=== PATIENT | female | born 1990 | race Caucasian/White ===

== ENCOUNTER 2020-10-23 10:10 | Outpatient (REF) | payer BC, SELFPAY ==
--- NOTE | 2020-10-23 10:24 | XR_ITS ---
EXAMINATION: XR SHOULDER, RIGHT CLINICAL INFORMATION: Pain COMPARISON: Previous x-ray October 2011 TECHNIQUE: AP external rotation, Grashey, scapular Y, and axillary views of the right shoulder. FINDINGS: The bones and soft tissues are normal. No fracture. Glenohumeral and acromioclavicular alignment is anatomic with normal joint space. No abnormal soft tissue calcifications. XR/XR shoulder RT min 2V IMPRESSION: Normal right shoulder.
[2020-10-23 10:51] LABS: MANUAL DIFF FLAG NO
[2020-10-23 10:57] LABS: Basophils Percent Auto 0.4 % (0-2); Eosinophils Absolute Auto 0.2 X10*3/uL (0.0-0.4); Eosinophils Percent Auto 2.5 % (0-4); Hematocrit 42.5 % (37-47); Hemoglobin 13.6 g/dl (12.0-16.0); Imm Gran Abs Auto 0.02 X10*3/uL (0.00-0.03); Imm Gran Pct Auto 0.3 % (0.0-0.4); Lymphocytes Absolute Auto 1.9 X10*3/uL (1.2-4.9); Lymphocytes Percent Auto 27.8 % (20-40); Mean Corpuscular Hemoglobin 28.2 pg (27.0-33.0); Mean Platelet Volume 9.6 fL (9.4-12.3); Monocytes Absolute Auto 0.3 X10*3/uL (0.1-1.2); Monocytes Percent Auto 4.9 % (2-11); Neutrophils Absolute Auto 4.4 X10*3/uL (2.0-8.3); Neutrophils Percent Auto 64.1 % (45-73); Platelet Count 228 X10*3/uL (160-400); Red Blood Count 4.83 X10*6/uL (4.20-5.50); Red Cell Distribution Width 12.2 % (11.0-16.0); White Blood Count 6.8 X10*3/uL (4.8-10.8)
[2020-10-23 11:26] LABS: Anion Gap 15 (12-20); Blood Urea Nitrogen 19 mg/dL (9-16); Calcium 9.1 mg/dL (8.4-10.2); Carbon Dioxide 23 mmol/L (22-29); Chloride 105 mmol/L (96-108); Cholesterol 248 mg/dL; Estimated Glomerular Filt Rate > 60; Glucose Fasting 90 mg/dL (60-99); HDL Cholesterol 55 mg/dL; LDL Cholesterol Calculated 184 mg/dl; Potassium 4.4 mmol/l (3.3-5.1); Rheumatoid Factor < 15.0 IU/mL (<15.0); Sodium 139 mmol/L (135-145); Triglycerides 47 mg/dL
== END 2020-10-23 10:11 | disposition home or self-care (01) ==
LOC: HO.LAB 10:10
PROVIDERS: PCP Internal Medicine; Visit Provider Nurse Practitioner Family
DX: M25.511 Pain in right shoulder (principal); Z83.438 Family history of other disorder of lipoprotein metabolism and other lipidemia
CPT/HCPCS: 36415; 73030; 80048; 80061; 85025; 86431

== ENCOUNTER 2022-01-29 07:57 | Outpatient (REF) | payer BC, SELFPAY ==
[2022-01-29 08:40] LABS: Mean Corpuscular HGB Conc 32.6 g/dl (31.0-35.0); Mean Corpuscular Hemoglobin 28.1 pg (27.0-33.0); Mean Corpuscular Volume 86.3 fL (80.0-98.0); Mean Platelet Volume 9.5 fL (9.4-12.3); Platelet Count 295 X10*3/uL (160-400); Red Blood Count 4.98 X10*6/uL (4.20-5.50); Red Cell Distribution Width 12.2 % (11.0-16.0)
[2022-01-29 08:58] LABS: Alanine Aminotransferase 20 U/L (0-31); Albumin Level 4.2 g/dL (3.5-5.0); Alkaline Phosphatase 80 U/L (39-117); Anion Gap 11 (12-20); Aspartate Amino Transferase 10 U/L (5-31); Bilirubin Total 0.6 mg/dL (0.0-1.0); Blood Urea Nitrogen 14 mg/dL (9-16); Calcium 9.5 mg/dL (8.4-10.2); Carbon Dioxide 26 mmol/L (22-29); Chloride 106 mmol/L (96-108); Cholesterol 302 mg/dL; Estimated Glomerular Filt Rate > 60; Glucose Fasting 90 mg/dL (60-99); HDL Cholesterol 40 mg/dL; LDL Cholesterol Calculated 246 mg/dl; Sodium 139 mmol/L (135-145); Total Protein 7.1 g/dL (6.5-8.0); Triglycerides 81 mg/dL
[2022-01-29 09:20] LABS: TSH reflex Free T4 0.69 uIU/mL (0.32-4.0)
[2022-01-31 08:21] LABS: Folate 12.5 ng/mL (> or = 4.0); Vitamin B12 310 pg/mL (200-900)
== END 2022-01-29 07:58 | disposition home or self-care (01) ==
LOC: HO.LAB 07:57
PROVIDERS: PCP Internal Medicine; Visit Provider Nurse Practitioner Family
DX: Z13.29 Encounter for screening for other suspected endocrine disorder (principal); R42 Dizziness and giddiness; E78.49 Other hyperlipidemia
CPT/HCPCS: 36415; 80053; 80061; 82306; 82607; 82746; 84443; 85027

== ENCOUNTER 2022-04-30 08:28 | Outpatient (REF) | payer BC, SELFPAY ==
[2022-04-30 11:13] LABS: Vitamin D 25-OH Total 39.8 ng/mL (>30)
== END 2022-04-30 08:29 | disposition home or self-care (01) ==
LOC: HO.LAB 08:28
PROVIDERS: PCP Internal Medicine; Visit Provider Nurse Practitioner Family
DX: R79.89 Other specified abnormal findings of blood chemistry (principal)
CPT/HCPCS: 36415; 82306

== ENCOUNTER 2023-06-03 08:21 | Outpatient (REF) | payer BC, SELFPAY ==
[2023-06-03 09:34] LABS: Alanine Aminotransferase 14 U/L (0-31); Albumin Level 4.2 g/dL (3.5-5.0); Alkaline Phosphatase 58 U/L (39-117); Anion Gap 11 (12-20); Aspartate Amino Transferase 8 U/L (5-31); Bilirubin Total 0.5 mg/dL (0.0-1.0); Blood Urea Nitrogen 14 mg/dL (9-16); Calcium 9.1 mg/dL (8.4-10.2); Carbon Dioxide 25 mmol/L (22-29); Chloride 108 mmol/L (96-108); Estimated Glomerular Filt Rate > 60; Glucose Fasting 86 mg/dL (60-99); Potassium 3.7 mmol/L (3.3-5.1); Sodium 140 mmol/L (135-145); Total Protein 7.2 g/dL (6.5-8.0)
[2023-06-03 09:53] LABS: Thyroid Stimulating Hormone 1.47 uIU/mL (0.32-4.0); Vitamin D 25-OH Total 42.1 ng/mL (>30)
[2023-06-03 10:08] LABS: Folate 11.4 ng/mL (> or = 4.0); Vitamin B12 305 pg/mL (200-900)
== END 2023-06-03 08:22 | disposition home or self-care (01) ==
LOC: HO.LAB 08:21
PROVIDERS: PCP Internal Medicine; Visit Provider Internal Medicine
DX: E55.9 Vitamin D deficiency, unspecified (principal); E53.8 Deficiency of other specified B group vitamins; L40.9 Psoriasis, unspecified; L65.9 Nonscarring hair loss, unspecified
CPT/HCPCS: 36415; 80053; 82306; 82607; 82746; 84443

== ENCOUNTER 2024-07-02 17:27 | Outpatient (AMB) | payer BC, SELFPAY ==
[2024-07-02 17:39] VITALS: BP 112/70; BMI 26.2
--- NOTE | 2024-07-02 17:39 | A.OFFPC_ITS ---
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 Accompanied by: Self / Same As Patient Allergies No Known Allergies Allergy (Verified 07/02/24 17:45) Medication List - Last Reconciled 07/02/24 by Candy Parson MD norgestimate-ethinyl estradiol 0.25-35 mg-mcg 1 tab PO DAILY Tobacco use date assessed: 07/02/24 Dental Screening Dental Screen Date: 07/02/24 Did you have a dental visit in the last 12 months?: Yes Did you have a dental problem in the last 6 months where you did not have access to dental care?: No Was dental information given to patient?: Patient has dentist HPI HPI Comments History of Present Illness Details This is a 34-year-old female that comes for her physical exam. She has no acute complaints. Pap smear is up-to-date with OBGYN. [facility] Medical History Skin lesion Familial hyperlipidemia Family history of hyperlipidemia Right shoulder pain Surgical History History of surgery H/O wisdom tooth extraction Previous section Family History (Updated 07/02/24 @ 17:50 by Candy Parson MD) Mother Bipolar disorder Father Familial hyperlipidemia Social History Housing: House Alcohol intake: current Alcohol intake frequency: holidays/special occasions only Alcohol type: hard liquor Patient Tobacco Use Status: Never used Tobacco e-Cigarette/Vaping Use: Never Used Second Hand Smoke Exposure: No service: No Current occupational status: employed Cognitive needs: No Hearing needs: No Vision needs: No Questionnaire PHQ-9 Over the last 2 weeks, how often have you been bothered by any of the following problems? 1. Little interest or pleasure in doing things: not at all 2. Feeling down, depressed, or hopeless: not at all 3. Trouble falling or staying asleep, or sleeping too much: not at all 4. Feeling tired or having little energy: not at all 5. Poor appetite or overeating: not at all 6. Feeling bad about yourself - or that you are a failure or have let yourself or your family down: not at all 7. Trouble concentrating on things, such as reading the newspaper or watching television: not at all 8. Moving or speaking so slowly that other people could have noticed. Or the opposite - being so fidgety or restless that you have been moving around a lot more than usual: not at all 9. Thoughts that you would be better off or of hurting yourself in some way: not at all Total score: 0 Depression Screening Interpretation: Negative Depression Screening Done: Yes 15432 - PHQ-9 Billing: Yes Source: Developed by Drs. Edward Loyola, Anita Reyes, North Rucker and colleagues, with an educational carrie from [employer]. Thrive Questionnaire Date Thrive assessed: 07/02/24 I am a: Patient What is your living situation today?: I have a steady place to live Within the past 12 months, did the food you bought not last and you didn't have the money to get more?: Never true Within the past 12 months, did you worry whether your food would run out before you got money to buy more?: Never true Do you have trouble paying for medicines?: No Do you have trouble getting transportation to medical appointments?: No Do you have trouble paying your heating and electricity bill?: No Do you have trouble taking care of your child, family member or friend?: No Do you have trouble with day-to-day activities such as bathing, preparing meals, shopping, managing finances, etc.?: No Are you currently unemployed and looking for a job?: No Are you interested in more education?: No Please select the resources that you would like help with: None Currently or been in a relationship where the following occur: No concerns reported THRIVE Score: 0 AUDIT C Alcohol Use Questionnaire (AUDIT-C) 1. How often do you have a drink containing alcohol?: Monthly or less 2. How many drinks containing alcohol do you have on a typical day when you are drinking?: 1 or 2 3. How often do you have six or more drinks on one occasion?: Never Total Score: 1 Score Reviewed/Action Taken: No LILIAN-7 AMB Questionnaire LILIAN-7 Date LILIAN - 7 assessed: 07/02/24 Feeling nervous, anxious, or on edge: 0 = Not at all Not being able to stop or control worryin = Not at all Worrying too much about different things: 0 = Not at all Trouble relaxin = Not at all Being so restless that it is hard to sit still: 0 = Not at all Becoming easily annoyed or irritable: 0 = Not at all Feeling afraid as if something awful might happen: 0 = Not at all Total LILIAN-7 score (0-4 normal; 5-9 mild; 10-14 moderate; 15-21 severe): 0 Source: Developed by Drs. Edward Loyola, Anita Reyes, North Rucker and colleagues, with an educational carrie from [employer]. LILIAN-7 Assessment Billing LILIAN-7 Assessment Tool: LILIAN-7 Assessment 98941 Review of Systems Const All systems reviewed & are unremarkable except as noted in HPI and below Card Denies chest pain at rest, Denies chest pain with activity, Denies edema, Denies irregular heart rhythm, Denies claudication, Denies dyspnea, Denies dyspnea on exertion, Denies orthopnea, Denies paroxysmal nocturnal dyspnea and Denies slow heart rate Resp Denies cough, Denies dyspnea and Denies dyspnea on exertion GI Denies abdominal pain, Denies change in bowel habits, Denies excessive flatus, Denies nausea and Denies vomiting Denies urinary incontinence, Denies urinary hesitancy and Denies urinary urgency Musc Denies abnormal gait, Denies atrophy, Denies deformity and Denies limited range of motion Skin/Breast Denies bleeding lesions, Denies changing lesions and Denies rash Neuro Denies abnormal gait, Denies behavioral changes and Denies lack of coordination Psych Denies behavioral changes Physical exam (Primary Care) Vital Signs: Last Vital Signs BP 112/70 07/02/24 17:39 BMI result Body Mass Index 26.2 Tobacco/Smoking Status: Tobacco use Status Tobacco use date assessed 07/02/24 07/02/24 17:45 Patient Tobacco Use Status Never used Tobacco 07/02/24 17:45 e-Cigarette/Vaping Use Never Used 07/02/24 17:45 PHQ-9: PHQ-9 Score PHQ-9: Total score 0 07/02/24 19:43 Depression Screening Interpretation: Negative Thrive Assessment: Date of Thrive Assessment Date Thrive assessed 07/02/24 07/02/24 17:46 Currently or been in a relationship where the following occur: No concerns reported [facility] Head: Yes normal to inspection, Yes normocephalic and Yes atraumatic Ears: external ears normal Eyes General: appearance normal, both eyes and all related structures Eyelids: Yes eyelids normal Conjunctivae: conjunctivae normal Neck Neck: Yes normal visual inspection and Yes supple Resp Effort & Inspection: normal respiratory effort Auscultation: clear to auscultation bilaterally Cardio Jugular venous distension: no JVD Rate: regular rate Rhythm: regular rhythm Heart sounds: S1 normal heart sound present and S2 normal heart sound present GI Inspection: Yes normal to inspection Palpation (GI): Soft to palpation and nontender Auscultation: normal bowel sounds Skin General skin exam: no rashes or lesions noted Neuro General: no focal motor deficits Extrem General: Yes full ROM Psych Appearance: grossly normal Assessment and Plan Assessment & Plan (1) Physical exam: Code(s): Z00.00 - Encounter for general adult medical examination without abnormal findings Plan: Repeat in a year. Orders: Orders Lipid Panel Today E78.5 - Hyperlipidemia, unspecified Comprehensive [place]. Panel Fast Today Z00.00 - Encounter for general adult medical examination without abnormal findings Coding Level of Care Code Est Pt Prev Care 18-39y(87616) Diagnoses Physical exam Z00.00 Additional Codes LILIAN-7 Assessment Billing - LILIAN-7 Assessment Tool: LILIAN-7 Assessment 76880 ([id number]) Time Spent (min) 30
== END 2024-07-02 17:56 | disposition home or self-care (01) ==
PROVIDERS: PCP Internal Medicine; Visit Provider Internal Medicine
DX: Z00.00 Encounter for general adult medical examination without abnormal findings (principal)

== ENCOUNTER → 2024-07-02 17:27 | Outpatient (BNVA) | payer BC, SELFPAY | PROVIDERS: PCP Internal Medicine; Visit Provider Internal Medicine | DX: Z00.00 Encounter for general adult medical examination without abnormal findings (principal) | CPT/HCPCS: 96127 ==

== ENCOUNTER 2024-08-09 13:20 | Outpatient (REF) | payer BC, SELFPAY ==
[2024-08-09 13:35] LABS: MANUAL DIFF FLAG NO
[2024-08-09 14:11] LABS: Basophils Percent Auto 0.6 % (0-2); Eosinophils Absolute Auto 0.2 X10*3/uL (0.0-0.4); Eosinophils Percent Auto 2.6 % (0-4); Hematocrit 41.3 % (37.0-47.0); Hemoglobin 13.5 g/dl (12.0-16.0); Imm Gran Abs Auto 0.02 X10*3/uL (0.00-0.03); Imm Gran Pct Auto 0.3 % (0.0-0.4); Lymphocytes Absolute Auto 1.8 X10*3/uL (1.2-4.9); Lymphocytes Percent Auto 27.8 % (20-40); Mean Corpuscular HGB Conc 32.7 g/dl (31.0-35.0); Mean Corpuscular Hemoglobin 28.2 pg (27.0-33.0); Mean Corpuscular Volume 86.2 fL (80.0-98.0); Mean Platelet Volume 9.2 fL (9.4-12.3); Monocytes Absolute Auto 0.3 X10*3/uL (0.1-1.2); Monocytes Percent Auto 4.2 % (2-11); Neutrophils Absolute Auto 4.2 x10*3/uL (2.0-8.3); Neutrophils Percent Auto 64.5 % (45-73); Platelet Count 260 X10*3/uL (160-400); Red Blood Count 4.79 X10*6/uL (4.20-5.50); Red Cell Distribution Width 12.5 % (11.0-16.0); White Blood Count 6.5 X10*3/uL (4.8-10.8)
[2024-08-09 15:21] LABS: Iron 43 mcg/dL (30-160); Percent Iron Saturation 11 % (15-50); Total Iron Binding Capacity 377 mcg/dL (228-428); Unsaturated Iron Binding 334 ug/dL
[2024-08-09 15:27] LABS: Vitamin D 25-OH Total 49.1 ng/mL (>30)
[2024-08-09 15:47] LABS: Folate 13.6 ng/mL (> or = 4.0); Vitamin B12 334 pg/mL (200-900)
== END 2024-08-09 13:21 | disposition home or self-care (01) ==
LOC: HO.LAB 13:20
PROVIDERS: PCP Internal Medicine; Visit Provider Internal Medicine
DX: E55.9 Vitamin D deficiency, unspecified (principal); D64.9 Anemia, unspecified; E53.8 Deficiency of other specified B group vitamins
CPT/HCPCS: 36415; 82306; 82607; 82746; 83540; 85025

== ENCOUNTER 2024-08-17 07:49 | Outpatient (REF) | payer BC, SELFPAY ==
[2024-08-17 08:31] LABS: Alanine Aminotransferase 18 U/L (0-31); Albumin Level 4.1 g/dL (3.5-5.0); Alkaline Phosphatase 80 U/L (39-117); Anion Gap 12 (12-20); Aspartate Amino Transferase 10 U/L (5-31); Bilirubin Total 0.5 mg/dL (0.0-1.0); Blood Urea Nitrogen 14 mg/dL (9-16); Calcium 8.7 mg/dL (8.4-10.2); Carbon Dioxide 23 mmol/L (22-29); Chloride 108 mmol/L (96-108); Cholesterol 255 mg/dL (<200); Estimated Glomerular Filt Rate > 60; Glucose Fasting 94 mg/dL (60-99); HDL Cholesterol 48 mg/dL (>40); LDL Cholesterol Calculated 186 mg/dL (<100); Potassium 3.6 mmol/L (3.3-5.1); Sodium 139 mmol/L (135-145); Total Protein 7.1 g/dL (6.5-8.0); Triglycerides 105 mg/dL (<150)
== END 2024-08-17 07:50 | disposition home or self-care (01) ==
LOC: HO.LAB 07:49
PROVIDERS: PCP Internal Medicine; Visit Provider Internal Medicine
DX: Z00.00 Encounter for general adult medical examination without abnormal findings (principal); E78.5 Hyperlipidemia, unspecified
CPT/HCPCS: 36415; 80053; 80061

== ENCOUNTER 2025-03-17 16:32 | Outpatient (AMB) | payer BC, SELFPAY ==
--- NOTE | 2025-03-17 16:36 | MHC.PC.OV ---
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 Accompanied by: Self / Same As Patient Allergies No Known Allergies Allergy (Verified 03/17/25 16:43) Medication List - Last Reconciled 03/17/25 by Candy Parson MD norgestimate-ethinyl estradiol 0.25-0.035 mg 1 tab PO DAILY Tobacco use date assessed: 03/17/25 Dental Screening Dental Screen Date: 03/17/25 Did you have a dental visit in the last 12 months?: Yes Did you have a dental problem in the last 6 months where you did not have access to dental care?: No Was dental information given to patient?: Patient has dentist HPI HPI Comments History of Present Illness Details The patient is a 34-year-old female presenting for medical clearance to participate in scuba diving activities. She reports having a history of elevated cholesterol levels, known as hyperlipidemia, which she acknowledges. Over a year ago, in December, she underwent a surgical procedure for the removal of a right breast mass. She has also undergone a previous in 2020. Additionally, she had wisdom teeth extraction in the past. The patient reports no current symptoms associated with these past surgical interventions. She states that she does not smoke and consumes alcohol only on special occasions, primarily hard liquor. She has had no history of depression, anxiety, bipolar disorder, or any psychiatric conditions. She also denies any history of panic attacks, intellectual disability, cognitive impairments, claustrophobia, or agoraphobia. Cardiovascular-barriga, she denies any experiencing exertional chest pain, shortness of breath, palpitations, or loss of consciousness. She has no family history of sudden cardiac before 50 and reports no personal history of hypertension. Regarding exercise tolerance, she can climb stairs without difficulty. No history of pulmonary issues such as pneumothorax or chronic cough, and she denies gastrointestinal issues such as heartburn or inflammatory bowel disease. There are no reports of hypoglycemia or kidney disease. Additionally, she denies any neurological conditions such as epilepsy or seizures. [facility] Medical History Skin lesion Familial hyperlipidemia Family history of hyperlipidemia Right shoulder pain Surgical History History of surgery H/O wisdom tooth extraction Previous section Family History Mother Bipolar disorder Father Familial hyperlipidemia Social History Housing: House Alcohol intake: current Alcohol intake frequency: holidays/special occasions only Alcohol type: hard liquor Patient Tobacco Use Status: Never used Tobacco e-Cigarette/Vaping Use: Never Used Second Hand Smoke Exposure: No service: No Current occupational status: employed Current occupational exposures/hazards: No Cognitive needs: No Hearing needs: No Vision needs: Yes Questionnaire PHQ-9 Over the last 2 weeks, how often have you been bothered by any of the following problems? 1. Little interest or pleasure in doing things: not at all 2. Feeling down, depressed, or hopeless: not at all 3. Trouble falling or staying asleep, or sleeping too much: not at all 4. Feeling tired or having little energy: not at all 5. Poor appetite or overeating: not at all 6. Feeling bad about yourself - or that you are a failure or have let yourself or your family down: not at all 7. Trouble concentrating on things, such as reading the newspaper or watching television: not at all 8. Moving or speaking so slowly that other people could have noticed. Or the opposite - being so fidgety or restless that you have been moving around a lot more than usual: not at all 9. Thoughts that you would be better off or of hurting yourself in some way: not at all Total score: 0 Depression Screening Interpretation: Negative Depression Screening Done: Yes 51187 - PHQ-9 Billing: Yes Source: Developed by Drs. Edward Loyola, Anita Reyes, [place] Rucker and colleagues, with an educational carrie from [employer]. Thrive Questionnaire Date Thrive assessed: 03/10/25 I am a: Patient What is your living situation today?: I have a steady place to live Within the past 12 months, did the food you bought not last and you didn't have the money to get more?: Never true Within the past 12 months, did you worry whether your food would run out before you got money to buy more?: Never true Do you have trouble paying for medicines?: No Do you have trouble getting transportation to medical appointments?: No Do you have trouble paying your heating and electricity bill?: No Do you have trouble taking care of your child, family member or friend?: No Do you have trouble with day-to-day activities such as bathing, preparing meals, shopping, managing finances, etc.?: No Are you currently unemployed and looking for a job?: No Are you interested in more education?: No Please select the resources that you would like help with: None Currently or been in a relationship where the following occur: No concerns reported THRIVE Score: 0 AUDIT C Alcohol Use Questionnaire (AUDIT-C) 1. How often do you have a drink containing alcohol?: Monthly or less 2. How many drinks containing alcohol do you have on a typical day when you are drinking?: 1 or 2 3. How often do you have six or more drinks on one occasion?: Never Total Score: 1 Score Reviewed/Action Taken: No LILIAN-7 AMB Questionnaire LILIAN-7 Date LILIAN - 7 assessed: 03/17/25 Feeling nervous, anxious, or on edge: 0 = Not at all Not being able to stop or control worryin = Not at all Worrying too much about different things: 0 = Not at all Trouble relaxin = Not at all Being so restless that it is hard to sit still: 0 = Not at all Becoming easily annoyed or irritable: 0 = Not at all Feeling afraid as if something awful might happen: 0 = Not at all Total LILIAN-7 score (0-4 normal; 5-9 mild; 10-14 moderate; 15-21 severe): 0 Source: Developed by Drs. Edward Loyola, Anita Reyes, [place] Rucker and colleagues, with an educational carrie from [employer]. LILIAN-7 Assessment Billing LILIAN-7 Assessment Tool: LILIAN-7 Assessment 80196 Review of Systems Const All systems reviewed & are unremarkable except as noted in HPI and below Card Denies chest pain at rest, Denies chest pain with activity, Denies edema, Denies irregular heart rhythm, Denies claudication, Denies dyspnea, Denies dyspnea on exertion, Denies orthopnea, Denies paroxysmal nocturnal dyspnea and Denies slow heart rate Resp Denies cough, Denies dyspnea and Denies dyspnea on exertion GI Denies abdominal pain, Denies change in bowel habits, Denies excessive flatus, Denies nausea and Denies vomiting Denies urinary incontinence, Denies urinary hesitancy and Denies urinary urgency Musc Denies abnormal gait, Denies atrophy, Denies deformity and Denies limited range of motion Skin/Breast Denies bleeding lesions, Denies changing lesions and Denies rash Neuro Denies abnormal gait and Denies lack of coordination Physical exam (Primary Care) Vital Signs: Last Vital Signs BP 110/76 03/17/25 16:38 BMI result Body Mass Index 26.3 Tobacco/Smoking Status: Tobacco use Status Tobacco use date assessed 03/17/25 03/17/25 16:42 Patient Tobacco Use Status Never used Tobacco 03/17/25 16:37 e-Cigarette/Vaping Use Never Used 03/17/25 16:37 PHQ-9: PHQ-9 Score PHQ-9: Total score 0 03/17/25 17:35 Depression Screening Interpretation: Negative Thrive Assessment: Date of Thrive Assessment Date Thrive assessed 03/10/25 03/17/25 16:37 Currently or been in a relationship where the following occur: No concerns reported Resp Effort & Inspection: normal respiratory effort Auscultation: clear to auscultation bilaterally Cardio Jugular venous distension: no JVD Rate: regular rate Rhythm: regular rhythm Heart sounds: S1 normal heart sound present and S2 normal heart sound present Extrem General: Yes full ROM Coding Level of Care Code Est Pt Level 3 (41216) Complex EM visit Add On G2211 Diagnoses Respiratory clearance examination, encounter for Z01.89 Additional Codes LILIAN-7 Assessment Billing - LILIAN-7 Assessment Tool: LILIAN-7 Assessment 81462 ([id number]) PHQ-9 - 41287 - PHQ-9 Billing: Yes ([id number]) Time Spent (min) 19 Assessment & Plan Assessment & Plan (1) Respiratory clearance examination, encounter for: Code(s): Z01.89 - Encounter for other specified special examinations Category: Medical Plan To obtain medical clearance for scuba diving, a comprehensive evaluation will be performed, including an EKG and a heart ultrasound to check for cardiovascular issues, along with requisite blood work assessing lipid profile and kidney function. These tests are essential to rule out contraindications for scuba diving, and we discussed that her insurance coverage needs confirmation. No additional treatments are necessary currently. Patient was informed and verbally consented to the use of an ambient scribe for clinic note documentation during this visit. I explained to the patient the importance of ensuring she has no underlying health conditions that could pose a risk during scuba diving activities. The risks associated with undiagnosed cardiovascular or metabolic issues were discussed, emphasizing sudden risks during diving. I outlined the plan for necessary evaluations, which includes an EKG, ultrasound of the heart, and detailed blood work to check her lipid and kidney function status, all of which are customary checks for scuba diving clearance. She expressed concerns regarding insurance coverage for these tests, and I advised her to confirm details with her insurance provider. The necessity for full evaluation prior to clearance was reiterated. Orders: Orders ECG 12 lead EKG Today Z01. - Encounter for other specified special examinations CA echo transthoracic complete Today Z01.89 - Encounter for other specified special examinations Comprehensive Met. Panel Today Z.89 - Encounter for other specified special examinations Complete Blood Count Auto Diff Today Z01.89 - Encounter for other specified special examinations Factor V Leiden Today Z01.89 - Encounter for other specified special examinations Protein C Activity Reflex Ag Today Z01.89 - Encounter for other specified special examinations Protein S Activity reflex Ag Today Z01.89 - Encounter for other specified special examinations Patient Instructions: - Follow up with your insurance about coverage for the EKG and ultrasound. - Proceed to get an EKG done at the hospital when ready. - Schedule an ultrasound appointment for your heart through our office. - Expect blood work to be done for lipid profile and kidney function. - Do not engage in scuba diving until all evaluations clear you to do so. - Stay informed about symptoms or changes in your health and report them immediately. - Contact the office if you have any questions or concerns regarding tests or results.
[2025-03-17 16:38] VITALS: BP 110/76; BMI 26.3
--- OUTSIDE RECORDS SUMMARY | 2025-03-17 17:08 | XMS_ITS | Patient Health Record ---
Author Organization [facility] Address [address] [place] [address] Care Team Providers Care Designer Name Role Phone ANNA RUELAS Primary Care Provider Unavailab maxim Rowan Quintanilla Unavailable [phone] Allergies No Known Allergies Reason For Referral No Information Medications Medication SIG (Take, Route, Frequency, Duration) Notes Start Date End Date Status Terconazole 3 0.8 % 1 applicatorful at b edtime Vaginal Once a day for 3 day(s) 12/09/2020 Active Vitamin 27-0.8 MG 1 tablet Orally Once a day for 90 days Active Social History Alcohol Screen (Audit-C) Question Answer Notes Did you have a drink contain ing alcohol in the past year? Yes How often did you have a dri nk containing alcohol in the past year? Monthly or less (1 point) How many drinks did you have on a typical day when you were drinking in the past year? 1 or 2 drinks (0 point) Points 1 Interpretation Negative Sexual History Question Answer Notes Had sex in the past 12 months (vaginal, oral, or anal)? Yes with Men only Tobacco use other than smoking: Question Answer Notes Are you an other tobacco user? No Section Notes: MARITAL STATUS: significant other OCCUPATION: employed full-time on [employer] team at [employer] SEXUAL ACTIVITY: monogamous relationship. Heterosexual CONTRACEPTION: oral contraceptives SMOKING: Never a smoker TOBACCO EXPOSURE: No smokers in home. .CE: ALCOHOL: rare alcohol ILLICIT DRUGS: no SEATBEALT: yes MARITAL STATUS: significant other OCCUPATION: employed full-time on [email or web address] at [employer] SEXUAL ACTIVITY: monogamous relationship. Heterosexual CONTRACEPTION: oral contraceptives MARITAL STATUS: significant other OCCUPATION: employed full-time on [employer] team at [employer] SEXUAL ACTIVITY: monogamous relationship. 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 Heterosexual CONTRACEPTION: oral contraceptives Problems Problem Type SNOMED Code ICD Code Onset Dates Problem Status W/U Status Risk Notes Problem Pure hypercholesterolemia (162495244) Pure hypercholesterolemia (272.0) Active confirmed Problem Atopic dermatitis (01000226) Atopic dermatitis, unspecified (L20.9) Active confirmed Problem Psoriasis (1406705) Psoriasis, unspecified (L40.9) Active confirmed Problem Amenorrhea (05434559) Amenorrhea , unspecified (N91.2) Active confirmed Plan Of Treatment Pending Test Test Name Order Date ANTI-HEPATITIS C 03/24/2020 CYTOLOGY (BACKPACKERS MANAGER) 09/05/2017 HEP. B SURF. AG 03/24/2020 SYPHILIS TESTING 03/24/2020 HIV AB-AG 4TH GENERATION 03/24/2020 Insurance Providers Payer Name Payer Address Payer Phone Subscriber Number Group Number Insured Name Patient Relationship to Insured Coverage Start Date Coverage End Date [employer] [place] [address] [place] [address] [phone] [id number] LIONEL SHELLEY Self - patient is the insured Medical (General) History Medical History History ICD Code Familial hypercholesterolemia Atopic dermatitis, unspecified L20.9 Family history of malignant neoplasm of digestive organs Z80.0 Atopic dermatitis, unspecified L20.9 Right lower quadrant abdominal swelling, mass and lump R19.03 Psoriasis, unspecified L40.9 Surgical History Surgery Date(Month/Year) wisdom teeth extraction
== END 2025-03-17 16:47 | disposition home or self-care (01) ==
LOC: HO.HMCH 16:32
PROVIDERS: PCP Internal Medicine; Visit Provider Internal Medicine
DX: Z01.89 Encounter for other specified special examinations (principal)

== ENCOUNTER → 2025-03-17 16:32 | Outpatient (BNVA) | payer BC, SELFPAY | PROVIDERS: PCP Internal Medicine; Visit Provider Internal Medicine | DX: E78.5 Hyperlipidemia, unspecified (principal); Z01.89 Encounter for other specified special examinations | CPT/HCPCS: 96127 ==

== ENCOUNTER 2025-07-11 10:31 | Outpatient (REF) | payer BC, SELFPAY ==
[2025-07-11 11:54] LABS: Hematocrit 43.6 % (37.0-47.0); Hemoglobin 14.2 g/dl (12.0-16.0); Imm Gran Abs Auto 0.01 X10*3/uL (0.00-0.03); Imm Gran Pct Auto 0.2 % (0.0-0.4); Lymphocytes Absolute Auto 1.7 X10*3/uL (1.2-4.9); MANUAL DIFF FLAG SCAN; Mean Corpuscular HGB Conc 32.6 g/dl (31.0-35.0); Mean Corpuscular Hemoglobin 27.2 pg (27.0-33.0); Mean Corpuscular Volume 83.4 fL (80.0-98.0); NRBC Abs Auto 0.000 X10*3/uL (0.0-0.012); NRBC Pct Auto 0.0 /100WBC (0.0-0.2); Red Blood Count 5.23 X10*6/uL (4.20-5.50); SCAN SMEAR FLAG 1; White Blood Count 4.1 X10*3/uL (4.8-10.8)
--- OUTSIDE RECORDS SUMMARY | 2025-07-11 11:59 | XMS_ITS | Patient Health Record ---
Author Organization [facility] Address [address] [place] [address] Care Team Providers Care Silver Recovery Operator Name Role Phone ANNA RUELAS Primary Care Provider Unavailab pan Rowan Qunitanilla Unavailable [phone] Allergies No Known Allergies Reason For Referral No Information Medications Medication SIG (Take, Route, Frequency, Duration) Notes Start Date End Date Status Terconazole 3 0.8 % 1 applicatorful at b edtime Vaginal Once a day; Duration: 3 day(s) 12/09/2020 Active Vitamin 27-0.8 MG 1 tablet Orally Once a day; Duration: 90 days Active Social History Alcohol Screen [...] OCCUPATION: employed full-time on accounting team at [employer] SEXUAL ACTIVITY: monogamous relationship. Heterosexual CONTRACEPTION: oral contraceptives SMOKING: Never a smoker TOBACCO EXPOSURE: No smokers in home. .CE: ALCOHOL: rare alcohol ILLICIT DRUGS: no SEATBEALT: yes MARITAL STATUS: significant other OCCUPATION: employed full-time on [employer] team at [employer] SEXUAL ACTIVITY: monogamous relationship. Heterosexual CONTRACEPTION: oral contraceptives MARITAL STATUS: significant other OCCUPATION: employed full-time on [employer] team at [employer] SEXUAL ACTIVITY: monogamous relationship. 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 Heterosexual CONTRACEPTION: oral contraceptives Problems Problem Type SNOMED Code ICD Code Onset Dates Problem Status W/U Status Risk Notes Problem Pure hypercholesterolemia (550603000) Pure hypercholesterolemia (272.0) Active confirmed Problem Atopic dermatitis (08783452) Atopic dermatitis, unspecified (L20.9) Active confirmed Problem Psoriasis (6303783) Psoriasis, unspecified (L40.9) Active confirmed Problem Amenorrhea (02886760) Amenorrhea , unspecified (N91.2) Active confirmed Plan Of Treatment Pending Test Test Name Order Date ANTI-HEPATITIS C 03/24/2020 CYTOLOGY (FLOSSER) 09/05/2017 HEP. B SURF. AG 03/24/2020 SYPHILIS TESTING 03/24/2020 HIV AB-AG 4TH GENERATION 03/24/2020 Insurance Providers Payer Name Payer Address Payer Phone Subscriber Number Group Number Insured Name Patient Relationship to Insured Coverage Start Date Coverage End Date [employer] [place] [address] [place] [address] [id number] LIONEL SHELLEY Self - patient is the insured Medical (General) History Medical History History ICD Code Familial hypercholesterolemia Atopic dermatitis, unspecified L20.9 Family history of malignant neoplasm of digestive organs Z80.0 Atopic dermatitis, unspecified L20.9 Right lower quadrant abdominal swelling, mass and lump R19.03 Psoriasis, unspecified L40.9 Surgical History Surgery Date(Month/Year) wisdom teeth extraction
[2025-07-11 12:16] LABS: Platelet Count 112 X10*3/uL (160-400)
[2025-07-11 12:31] LABS: Alanine Aminotransferase 37 U/L (0-31); Albumin Level 4.4 g/dL (3.5-5.0); Alkaline Phosphatase 86 U/L (39-117); Anion Gap 10 (12-20); Aspartate Amino Transferase 23 U/L (5-31); Blood Urea Nitrogen 10 mg/dL (9-16); Calcium 9.0 mg/dL (8.4-10.2); Carbon Dioxide 26 mmol/L (22-29); Chloride 105 mmol/L (96-108); Cholesterol 266 mg/dL (<200); Estimated Glomerular Filt Rate > 60; HDL Cholesterol 31 mg/dL (>40); Potassium 3.4 mmol/L (3.3-5.1); Sodium 138 mmol/L (135-145); Total Protein 7.4 g/dL (6.5-8.0); Triglycerides 160 mg/dL (<150)
[2025-07-11 12:50] LABS: Thyroid Stimulating Hormone 0.66 uIU/mL (0.32-4.0)
[2025-07-11 13:04] LABS: Folate 12.2 ng/mL (> or = 4.0); Vitamin B12 339 pg/mL (200-900)
[2025-07-15 22:08] LABS: Protein S Activity rflx Tot&Fr 36 % normal (60-140)
[2025-07-17 14:48] LABS: Protein S Total (Antigenic) 63 % normal (70-140)
== END 2025-07-11 10:32 | disposition home or self-care (01) ==
LOC: HO.LAB 10:31
PROVIDERS: PCP Internal Medicine; Visit Provider Internal Medicine
DX: Z01.89 Encounter for other specified special examinations (principal); E53.8 Deficiency of other specified B group vitamins; E78.5 Hyperlipidemia, unspecified; L65.9 Nonscarring hair loss, unspecified; E55.9 Vitamin D deficiency, unspecified
CPT/HCPCS: 36415; 80053; 80061; 81241; 82306; 82607; 82746; 84443; 85025; 85302; 85303; 85305; 85306

== ENCOUNTER 2025-07-24 08:24 | Outpatient (AMB) | payer BC, SELFPAY ==
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
[2025-07-24 08:40] VITALS: BP 120/68; PULSE 104; TEMP 36.3; O2SAT 99; BMI 26.5
== END 2025-07-24 09:03 | disposition home or self-care (01) ==
LOC: HO.HMCH 08:25
PROVIDERS: PCP Internal Medicine; Visit Provider Internal Medicine
DX: Z00.00 Encounter for general adult medical examination without abnormal findings (principal); H81.12 Benign paroxysmal vertigo, left ear